=== PATIENT | male | born 1990 | race Caucasian/White ===

== ENCOUNTER 2019-03-21 16:56 | Emergency (ER) | payer SELFPAY ==
[~2019-03-21] VITALS: Ht 190.5 cm; Wt 89.5 kg
--- NOTE | 2019-03-21 17:34 | Diagnostic Imaging Report ---
PROCEDURE: CT head and maxillofacial without contrast. TECHNIQUE: Multiple contiguous axial images were obtained through the head and facial bones without the use of intravenous contrast. Auto Exposure Controls were utilized during the CT exam to meet ALARA standards for radiation dose reduction. INDICATION: Facial injury. Laceration of left cheek. COMPARISON: No comparison is available. FINDINGS: CT of the head demonstrates no evidence of an acute intracranial abnormality. There are no findings of intracranial hemorrhage. There is no intracranial mass effect or shift. There is no hydrocephalus. There is no abnormal extra-axial fluid collection. Negrete and white matter differentiation appear maintained. There is no abnormal low-density within the basal ganglia or within the mariluz. The mastoid air cells appear clear. There are no findings of a calvarial fracture. The CT of the face demonstrates some soft tissue induration within the left cheek with a single bubble of gas. A couple of tiny densities are demonstrated at this location just anterior to the left masseter at the junction of the zygoma and maxilla. These may reflect tiny calcifications though punctate foreign bodies could not be completely excluded. There are no findings of an adjacent maxillary fracture or left orbital fracture. Right orbit is also unremarkable. The intraorbital contents appear normal. There is some slight irregularity of the distal nasal bones which is age indeterminate but likely remote as there is no overlying soft tissue swelling. Zygomatic arches appear normal. The pterygoids are appropriate. There is no TMJ dislocation or evidence of a mandibular fracture. There are no air-fluid levels present within the paranasal sinuses. There is rightward nasal septal deviation and there is inferior nasal turbinate hypertrophy. IMPRESSION: 1. No CT evidence of an acute intracranial abnormality. 2. Left cheek soft tissue swelling with a tiny bubble of gas. There also are some punctate radiodensities which are just anterior to the junction of the zygoma and the maxilla along the anterior margins of the masseter muscle belly. These may reflect some tiny soft tissue calcifications though tiny foreign bodies could not be excluded if there has been penetrating injury. 3. No acute facial fracture evident. 4. No blood or fluid levels within the paranasal sinuses. Dictated by: Dictated on workstation # [id number]
--- NOTE | 2019-03-21 17:44 | ED General ---
General Chief Complaint: Head/Cervical Problems Stated Complaint: FACE INJ Nursing Triage Note: Patient c/o left facial pain and swelling. States that this morning he was working when the watch crystal grinder wheel blew and and came back to hit him in the face. He denies any loss of conciousness. He went to urgent care and was sent to the ED. Patient reports that the swelling has increased since this morning. Nursing Sepsis Screen: No Definite Risk Source of Information: Patient History of Present Illness Date Seen by Provider: Mar 21, 2019 Time Seen by Provider: 17:43 Initial Comments 28-year-old male presenting with complaints of left facial pain and swelling. He reports that he was working with a watch crystal grinder wheel when it broke and a piece came back and hit him in the face. He denies losing consciousness. He had a small abrasion to his last cheek. He has had increased swelling to his cheek and extending up around his eye on the left side of his face since the incident. He denies any loss of vision. He has some mild pain around his teeth on that side. He has had no drainage from his nose or from his ears. Allergies and Home Medications Allergies Coded Allergies: No Known Drug Allergies (Unverified , 03/21/19) Home Medications Ibuprofen 800 Mg Tablet, 800 MG PO Q8H PRN for PAIN Prescribed by: TITA JEFFRIES on 03/21/191818 Tramadol HCl 50 Mg Tablet, 50 MG PO Q6H PRN for PAIN Prescribed by: TITA JEFFRIES on 03/21/191818 Patient Home Medication List Home Medication List Reviewed: Yes Review of Systems Review of Systems Constitutional: No chills, No fever EENTM: see HPI Respiratory: no symptoms reported Cardiovascular: no symptoms reported Gastrointestinal: no symptoms reported Genitourinary: no symptoms reported Musculoskeletal: no symptoms reported Skin: see HPI Psychiatric/Neurological: Headache (left-sided) Past Ptxpvke-Tvdyha-Mljmbo Hx Past Med/Social Hx: Reviewed Nursing Past Med/Soc Hx Patient Social History Alcohol Use: Occasionally Uses Number of Drinks Today: 4 Alcohol Beverage of Choice: Beer Recreational Drug Use: No Smoking Status: Never a Smoker 2nd Hand Smoke Exposure: No Recent Foreign Travel: No Contact w/Someone Who Travel: No Recent Infectious Disease Expo: No Recent Hopitalizations: No Physical Abuse: No Sexual Abuse: No Mistreated: No Fear: No Seasonal Allergies Seasonal Allergies: No Past Medical History Surgeries: No Respiratory: No Cardiac: No Neurological: No Genitourinary: No Gastrointestinal: No Musculoskeletal: No Endocrine: No HEENT: No Cancer: No Psychosocial: No Integumentary: No Blood Disorders: No Physical Exam Vital Signs Vital Signs - First Documented 03/21/19 17:03 Temp 36.4 Pulse 82 Resp 18 B/P (MAP) 143/90 (107) Pulse Ox 100 Capillary Refill : Less Than 3 Seconds Height, Weight, BMI Height: 6'3.00" Weight: 197lbs. 6.0oz. 89.838266ff; BMI Method:Actual General Appearance: No Apparent Distress, WD/WN HEENT: PERRL/EOMI, Pharynx Normal, Other (he has pain over the left maxillary sinus with a superficial abrasion on left anterior cheek. He states that he had this clued at urgent care prior to coming here to the emergency department.) Neck: Full Range of Motion, Normal Inspection, Non Tender, Supple Respiratory: Chest Non Tender, Lungs Clear Cardiovascular: Regular Rate, Rhythm, No Edema, Normal Peripheral Pulses Gastrointestinal: Normal Bowel Sounds, No Pulsatile Mass, Soft Rectal: Normal Exam, Normal Rectal Tone, Deferred Neurologic/Psychiatric: Alert, Oriented x3, No Motor/Sensory Deficits, Normal Mood/Affect, steel hanger II-XII Norm as Tested Progress/Results/Core Measures Suspected Sepsis Recent Fever Within 48 Hours: No Infection Criteria Present: None New/Unexplained Altered Menta: No Sepsis Screen: No Definite Risk SIRS Temperature: Pulse: 82 Respiratory Rate: 18 Blood Pressure 143 /90 Mean: 107 Results/Orders My Orders Orders - TITA JEFFRIES MD Ct Head/Maxillofacial Wo (03/21/19 17:06) Ice: Apply To Affected Area (03/21/19 17:06) Head Of Bed Q4H (03/21/19 17:06) Ketorolac Injection (Toradol Injection) (03/21/19 18:08) Vital Signs/I&O 03/21/19 03/21/19 17:03 18:28 Temp 36.4 36.4 Pulse 82 82 Resp 18 18 B/P (MAP) 143/90 (107) 143/90 (107) Pulse Ox 100 100 Capillary Refill : Less Than 3 Seconds Blood Pressure Mean: 107 Progress Note : Progress Note CT scan of the head and this was performed and did not demonstrate any acute intracranial hemorrhage or fractures of the face over orbits. Counseled on follow-up and return precautions. Advised to check with the clinic for continued concerns. Counseled to sleep with his head elevated to limit swelling. Diagnostic Imaging Diagonstic Imaging: CT Plain Films/CT/US/NM/MRI: facial bones, head Comments NAME: ALVERTO CARUSO [facility] REC#: [id number] PT STATUS: REG ER : 1990 PHYSICIAN: TITA JEFFRIES MD ADMIT DATE: 03/21/19/ER FS Draft Date of Exam:03/21/19 CT HEAD/MAXILLOFACIAL WO PROCEDURE: CT head and maxillofacial without contrast. TECHNIQUE: Multiple contiguous axial images were obtained through the head and facial bones without the use of intravenous contrast. Auto Exposure Controls were utilized during the CT exam to meet ALARA standards for radiation dose reduction. INDICATION: Facial injury. Laceration of left cheek. COMPARISON: No comparison is available. FINDINGS: CT of the head demonstrates no evidence of an acute intracranial abnormality. There are no findings of intracranial hemorrhage. There is no intracranial mass effect or shift. There is no hydrocephalus. There is no abnormal extra-axial fluid collection. Negrete and white matter differentiation appear maintained. There is no abnormal low-density within the basal ganglia or within the mariluz. The mastoid air cells appear clear. There are no findings of a calvarial fracture. The CT of the face demonstrates some soft tissue induration within the left cheek with a single bubble of gas. A couple of tiny densities are demonstrated at this location just anterior to the left masseter at the junction of the zygoma and maxilla. These may reflect tiny calcifications though punctate foreign bodies could not be completely excluded. There are no findings of an adjacent maxillary fracture or left orbital fracture. Right orbit is also unremarkable. The intraorbital contents appear normal. There is some slight irregularity of the distal nasal bones which is age indeterminate but likely remote as there is no overlying soft tissue swelling. Zygomatic arches appear normal. The pterygoids are appropriate. There is no TMJ dislocation or evidence of a mandibular fracture. There are no air-fluid levels present within the paranasal sinuses. There is rightward nasal septal deviation and there is inferior nasal turbinate hypertrophy. IMPRESSION: 1. No CT evidence of an acute intracranial abnormality. 2. Left cheek soft tissue swelling with a tiny bubble of gas. There also are some punctate radiodensities which are just anterior to the junction of the zygoma and the maxilla along the anterior margins of the masseter muscle belly. These may reflect some tiny soft tissue calcifications though tiny foreign bodies could not be excluded if there has been penetrating injury. 3. No acute facial fracture evident. 4. No blood or fluid levels within the paranasal sinuses. Dictated on workstation # [id number] Dict: 03/21/19 1724 Trans: 03/21/19 1733 [facility] [id number] Interpreted by: CALEB HOFFMAN MD Electronically signed by: Departure Impression Primary Impression: Facial contusion Qualified Codes: S00.83XA - Contusion of other part of head, initial encounter Disposition: 01 HOME, SELF-CARE Condition: Stable Departure-Patient Inst. Decision time for Depature: 18:17 Referrals: TUSHAR MOSCOSO MD (PCP) Primary Care Physician Patient Instructions: Contusion (DC) Add. Discharge Instructions: Apply ice 15-20 minutes every few hours to help with pain and swelling Ibuprofen 800 mg every 8 hours to help with pain, inflammation and swelling. Keep your head elevated to help decrease swelling and throbbing All discharge instructions reviewed with patient and/or family. Voiced understanding. Scripts Ibuprofen (Ibuprofen) 800 Mg Tablet 800 MG PO Q8H PRN for PAIN for 10 Days, #30 TAB 0 Refills Prov: TITA JEFFRIES MD 03/21/19 Tramadol HCl (Tramadol HCl) 50 Mg Tablet 50 MG PO Q6H PRN for PAIN for 3 Days, #12 TAB 0 Refills Prov: TITA JEFFRIES MD 03/21/19 TITA JEFFRIES MD Mar 21, 2019 17:43
[2019-03-21] MEDS ORDERED: KETOROLAC 60 MG/2 ML VIAL IM STA (18:08)
[2019-03-21] MEDS ORDERED: IBUP-1780 PO (18:19)
[2019-03-21] MEDS ORDERED: TRAM50TA2 PO (18:19)
[2019-03-21 18:28] VITALS: BP 143/90
== END 2019-03-21 18:28 | disposition home or self-care (01) ==
LOC: EDUNIT# 16:56 → ER FS 16:57
DX: S00.83XA Contusion of other part of head, initial encounter (principal); S00.81XA Abrasion of other part of head, initial encounter; W22.8XXA Striking against or struck by other objects, initial encounter
CPT/HCPCS: 70450; 70486; 96372

== ENCOUNTER 2019-08-01 21:38 | Emergency (ER) | payer SELFPAY ==
[~2019-08-01] VITALS: Ht 193 cm; Wt 90.0 kg
[~2019-08-01 21:38] MED LIST: IBUP-1780 PO; TRM50T PO
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
[2019-08-01 22:16] VITALS: BP 129/94
== END 2019-08-01 22:19 | disposition home or self-care (01) ==
LOC: EDUNIT# 21:38 → ER FS 21:40
DX: F10.129 Alcohol abuse with intoxication, unspecified (principal); V89.2XXA Person injured in unspecified motor-vehicle accident, traffic, initial encounter
CPT/HCPCS: 99283

== ENCOUNTER 2022-07-06 12:17 | Emergency (ER) | payer SELFPAY ==
[~2022-07-06] VITALS: Ht 184 cm; Wt 91.0 kg
[2022-07-06 12:45] VITALS: BP 128/93
--- NOTE | 2022-07-06 13:05 | Diagnostic Imaging Report ---
INDICATION: Chest pain with cough and cold. PA and lateral views of the chest are obtained. COMPARISON: No previous study is available for comparison at this time. FINDINGS: Heart size and pulmonary vasculature are within normal limits, and the lungs are clear, bilaterally. IMPRESSION: Unremarkable chest. Dictated by: Dictated on workstation # [id number]
--- NOTE | 2022-07-06 13:14 | ED General ---
General Chief Complaint: Cough/Cold/Flu Symptoms Stated Complaint: REGGIE LUNG PAIN Nursing Triage Note: Patient has presented to ER with cc of lung pain. He reports vomiting yesterday and having the lung pain. Source of Information: Patient History of Present Illness Date Seen by Provider: Jul 06, 2022 Time Seen by Provider: 13:00 Initial Comments 31-year-old male patient complaining of pain in right lower rib cage for the last 3 days as it intermittent pain that getting worse with movement and taking deep breaths. Patient states he had 1 episode of vomiting yesterday and complaining of left side lower rib pain started today and rated his pain 7/10. Patient said the pain radiated to his back. patient denies fever, urinary symptoms, cough, diarrhea and constipation, nasal congestion, sore throat, headache and body ache, chest injury. Patient states he does heavy physical activity. Patient states his girlfriend and 6-month-old daughter diagnosed with COVID and want to make sure he does not have COVID or pneumonia. Patient reports 5 episodes of COVID with the last one about 2 or 3 months ago. Patient did not have COVID vaccination. Allergies and Home Medications Allergies Coded Allergies: No Known Drug Allergies (Unverified , 03/21/19) Patient Home Medication List Home Medication List Reviewed: Yes Cyclobenzaprine HCl (Cyclobenzaprine HCl) 10 Mg Tablet, 10 MG PO Q8H PRN for SPASMS Prescribed by: Janny augustine on 07/06/22 1410 Ibuprofen (Ibuprofen) 800 Mg Tablet, 800 MG PO Q8H PRN for PAIN Prescribed by: TITA JEFFRIES on 03/21/191818 Ibuprofen (Ibuprofen) 800 Mg Tablet, 800 MG PO Q8H PRN for PAIN Prescribed by: Janny augustine on 07/06/22 1410 Tramadol HCl (Tramadol HCl) 50 Mg Tablet, 50 MG PO Q6H PRN for PAIN Prescribed by: TITA JEFFRIES on 03/21/191818 Review of Systems Review of Systems Constitutional: see HPI EENTM: see HPI Respiratory: see HPI Cardiovascular: see HPI Genitourinary: see HPI Musculoskeletal: see HPI Skin: see HPI Psychiatric/Neurological: See HPI Hematologic/Lymphatic: See HPI Immunological/Allergic: see HPI All Other Systems Reviewed Negative Unless Noted: Yes Past Hxqjltb-Emxyrt-Daarez Hx Patient Social History Tobacco Use?: No Use of E-Cig and/or Vaping dev: No Substance use?: No Seasonal Allergies Seasonal Allergies: No Past Medical History Surgeries: No Respiratory: No Cardiac: No Neurological: No Genitourinary: No Gastrointestinal: No Musculoskeletal: No Endocrine: No HEENT: No Cancer: No Psychosocial: No Integumentary: No Blood Disorders: No Physical Exam Vital Signs Vital Signs - First Documented 07/06/22 12:45 Temp 36.6 Pulse 89 Resp 16 B/P (MAP) 128/93 (105) Pulse Ox 99 O2 Delivery Room Air Capillary Refill : Height, Weight, BMI Height: 6'3.00" Weight: 197lbs. 6.0oz. 89.122496bn; 26.00 BMI Method:Actual General Appearance: No Apparent Distress, WD/WN HEENT: PERRL/EOMI, TMs Normal, Normal ENT Inspection, Pharynx Normal Neck: Full Range of Motion, Normal Inspection, Non Tender, Supple Respiratory: Chest Non Tender, Lungs Clear, Normal Breath Sounds, No Respi ratory Distress Cardiovascular: Regular Rate, Rhythm, No Edema, No Gallop, No JVD Gastrointestinal: Non Tender, Soft Back: Normal Inspection, No CVA Tenderness Extremity: Normal Capillary Refill, Normal Inspection, Normal Range of Motion Neurologic/Psychiatric: Alert, Oriented x3 Skin: Normal Color Progress/Results/Core Measures Suspected Sepsis SIRS Temperature: Pulse: 89 Respiratory Rate: 16 Blood Pressure 128 /93 Mean: 105 Results/Orders Lab Results Laboratory Tests Test 07/06/22 12:51 Range/Units Influenza Type A (RT-PCR) Not Detected Not Detecte Influenza Type B (RT-PCR) Not Detected Not Detecte SARS-CoV-2 RNA (RT-PCR) Not Detected Not Detecte My Orders Orders - JANNY AUGUSTINE MD Covid 19 Inhouse Test (07/06/22 12:51) Influenza A And B By Pcr (07/06/22 12:51) Isolation Central Supply Req (07/06/22 12:51) Chest Pa/Lat (2 View) (07/06/22 12:51) Ibuprofen Tablet (Motrin Tablet) (07/06/22 13:15) Medications Given in ED Current Medications Medications Dose Ordered Sig/Dima Route Start Time Stop Time Status Last Admin Dose Admin Ibuprofen 800 mg ONCE ONCE PO 07/06/22 13:15 07/06/22 13:42 DC 07/06/22 13:47 800 MG Vital Signs/I&O 07/06/22 12:45 Temp 36.6 Pulse 89 Resp 16 B/P (MAP) 128/93 (105) Pulse Ox 99 O2 Delivery Room Air Capillary Refill : 2 Blood Pressure Mean: 105 Progress Note : Progress Note Patient with multiple episodes of COVID infection and exposure to COVID recently and concern for COVID infection. Patient complaining of bilateral chest wall pain that getting worse with movement and 1 episode of vomiting yesterday. Patient had unremarkable chest x-ray and physical exam a negative COVID and flu test. Patient treated with ibuprofen in ER and felt better. Plan discharge patient home with diagnosis of musculoskeletal chest wall pain and prescription of Flexeril and ibuprofen. Patient informed about test results and plan of care and is to follow-up with his primary care physician and all questions addressed. Diagnostic Imaging Diagonstic Imaging: Xray Comments Chest x-ray interpreted by radiologist and reviewed by me and showed: NAME: ALVERTO CARUSO [facility] REC#: [id number] PT STATUS: REG ER : 1990 PHYSICIAN: JANNY AUGUSTINE MD ADMIT DATE: 07/06/22/ER FS Draft Date of Exam:07/06/22 CHEST PA/LAT (2 VIEW) INDICATION: Chest pain with cough and cold. PA and lateral views of the chest are obtained. COMPARISON: No previous study is available for comparison at this time. FINDINGS: Heart size and pulmonary vasculature are within normal limits, and the lungs are clear, bilaterally. IMPRESSION: Unremarkable chest. Dictated on workstation # [id number] Dict: 07/06/22 1303 Trans: 07/06/22 1304 [id number] Interpreted by: FREDRICK WHITLOCK MD Electronically signed by: Departure Impression Primary Impression: Musculoskeletal chest pain Disposition: 01 HOME, SELF-CARE Condition: Stable Departure-Patient Inst. Decision time for Depature: 14:07 Referrals: NO,LOCAL PHYSICIAN (PCP/Family) Primary Care Physician Patient Instructions: Muscle and Bone Pain (DC), Pleuritic Chest Pain ED Add. Discharge Instructions: Drink plenty of liquid Apply ice on the affected area Follow-up with your primary care physician in 3 to 5 days Return to ER as needed All discharge instructions reviewed with patient and/or family. Voiced understanding. Scripts Ibuprofen (Ibuprofen) 800 Mg Tablet 800 MG PO Q8H PRN for PAIN, #30 TAB 0 Refills Prov: JANNY AUGUSTINE MD 07/06/22 Cyclobenzaprine HCl (Cyclobenzaprine HCl) 10 Mg Tablet 10 MG PO Q8H PRN for SPASMS, #20 TAB 0 Refills Prov: JANNY AUGUSTINE MD 07/06/22 JANNY AUGUSTINE MD Jul 06, 2022 13:14
[2022-07-06] MEDS ORDERED: IBUPROFEN 800 MG (MOTRIN) TAB PO ONE (13:15)
[2022-07-06] MEDS ORDERED: CYCL10TA25 PO (14:10)
[2022-07-06] MEDS ORDERED: IBUP-1780 PO (14:10)
== END 2022-07-06 14:15 | disposition home or self-care (01) ==
LOC: EDUNIT# 12:17 → ER FS 12:20
DX: R07.89 Other chest pain (principal); Z20.822 Contact with and (suspected) exposure to COVID-19; Z28.310 Unvaccinated for COVID-19
CPT/HCPCS: 71046; 87636